=== PATIENT | male | born 1935 | race Caucasian/White ===

== ENCOUNTER → 2016-10-23 | Outpatient (CLI) | payer MEDICARE ==
[~2016-10-23] MED LIST: LIDOCAINE 2% PF Vial for OR 5 ML VIAL. ONE; PROPOFOL 20 ML IV ONE; fentaNYL PF VIAL 100 MCG/2 ML VIAL ONE
--- NOTE | 2016-10-23 15:28 | PCVCIMAG ---
APPROVED REPORT Study performed: 10/23/2016 13:43:45 EXAM: Comprehensive 2D, Doppler, and color-flow Echocardiogram Patient Location: Echo lab Status: routine Other Information Study Quality: Adequate Indications Hypotension Hypertension/HDD Hyperlipidemia. Pacermaker, afib, cad, stent 2D Dimensions IVSd: 7.04 (7-11mm)LVOT Diam: 18.51 (18-24mm) LVDd: 51.34 mm PWd: 7.84 (7-11mm)Ascending Ao: 28.86 (22-36mm) LVDs: 33.99 (25-40mm) Left Atrium: 46.52 (27-40mm) Aortic Root: 28.35 mm LV Single Plane 4CH: 49.80 % LV Single Plane 2CH: 41.70 %Villarreal's LVEF: 45.75 % Biplane EF: 46.9 % Volumes Left Atrial Volume (Systole) Single Plane 4CH: 43.94 mLSingle Plane 2CH: 41.90 mL LA ESV Index: 23.00 mL/m2 Aortic Valve AoV Peak Vicente.: 1.55 m/s AO Peak Gr.: 9.63 mmHgLVOT Max P.47 mmHg LVOT Max V: 1.37 m/s JUAN CARLOS Vmax: 2.37 cm2 Mitral Valve E/A Ratio: 1.0 MV E Max Vicente.: 1.12 m/s MV A Vicente.: 1.09 m/s Pulmonary Valve PV Peak Gr.: 3.93 mmHg Tricuspid Valve TR Peak Vicente.: 2.99 m/s TR Peak Gr.: 35.69 mmHg Left Ventricle The left ventricle is normal size. There is normal LV segmental wall motion. There is normal left ventricular wall thickness. Left ventricular systolic function is normal LVEF is 50-55%. The left ventricular diastolic function is normal. Right Ventricle The right ventricle is normal size. Pacermaker wire is noted. The right ventricular systolic function is normal. Atria The left atrium size is mildly enlarged The right atrium size is mildly enlarged. Pacemaker wire is noted. Aortic Valve The aortic valve is normal in structure. No aortic regurgitation is present. There is no aortic valvular stenosis. Mitral Valve Moderate mitral annular calcification Mild mitral valve regurgitation. No evidence of mitral valve stenosis. Tricuspid Valve The tricuspid valve is normal in structure. Moderate tricuspid regurgitation. Pulmonic Valve The pulmonary valve is normal in structure. There is no pulmonic valvular regurgitation. Great Vessels The aortic root is normal in size. IVC is normal in size and collapses with >50% inspiration Pericardium There is no pericardial effusion. <Conclusion> Left ventricular systolic function is normal There is normal LV segmental wall motion. LVEF 50-55%. Both atria are mildly enlarged. Pacemaker wire is noted. The aortic valve is normal in structure. No aortic regurgitation or stenosis Moderate mitral annular calcification. Mild mitral valve regurgitation. Pulmonary artery pressure of 43mmHg There is no pericardial effusion.
== END | disposition home or self-care (01) ==
LOC: PCVCIMAG 13:00
PROVIDERS: ATTEND Internal Medicine
DX: I08.1 Rheumatic disorders of both mitral and tricuspid valves (principal); I25.119 Atherosclerotic heart disease of native coronary artery with unspecified angina pectoris; I10 Essential (primary) hypertension; E78.5 Hyperlipidemia, unspecified; I48.0 Paroxysmal atrial fibrillation; I63.429 Cerebral infarction due to embolism of unspecified anterior cerebral artery; E78.00 Pure hypercholesterolemia, unspecified; I62.00 Nontraumatic subdural hemorrhage, unspecified; I77.89 Other specified disorders of arteries and arterioles; K74.60 Unspecified cirrhosis of liver; Z95.0 Presence of cardiac pacemaker; Z95.5 Presence of coronary angioplasty implant and graft; Z86.73 Personal history of transient ischemic attack (TIA), and cerebral infarction without residual deficits; Z79.82 Long term (current) use of aspirin; Z87.891 Personal history of nicotine dependence; Z79.899 Other long term (current) drug therapy
CPT/HCPCS: 80061; 93005; 93306; G0463; J2001; J2704; J3010

== ENCOUNTER → 2017-01-07 | Outpatient (CLI) | payer MEDICARE ==
--- NOTE | 2017-01-07 09:01 | PCVCIMAG ---
EXAM: MESENTERIC ARTERIAL DUPLEX AND AORTOILIAC DUPLEX INDICATION: Mesenteric Atherosclerosis. FINDINGS: CELIAC AXIS: Mild velocity elevation the celiac axis consistent with less than 50% stenosis. No high-grade stenosis is seen. SUPERIOR MESENTERIC ARTERY: Mild velocity elevation the proximal superior mesenteric artery consistent with less than 50% stenosis. No high-grade stenosis is seen. INFERIOR MESENTERIC ARTERY: Mild velocity elevation the proximal inferior mesenteric artery consistent with less than 50% stenosis. No high-grade stenosis is seen. Mesenteric veins are patent where seen. AORTA: Suprarenal aorta measures maximum diameter of 2.7 cm. There is not a fusiform infrarenal aortic aneurysm. The infrarenal aorta measures maximum diameter of 2.3 cm. No aortic stenosis. RIGHT COMMON ILIAC ARTERY: Maximum diameter is 1.1 cm. No significant stenosis. RIGHT EXTERNAL ILIAC ARTERY: No significant stenosis. LEFT COMMON ILIAC ARTERY: Maximum diameter is 1.1 cm. No significant stenosis. LEFT EXTERNAL ILIAC ARTERY: No significant stenosis. IMPRESSION: No flow limiting mesenteric arterial stenosis. Mild less than 50% stenoses seen in the celiac axis, superior mesenteric artery, and inferior mesenteric artery. No abdominal aortic aneurysm. No aortoiliac stenosis seen. LOC:[id number]
== END | disposition home or self-care (01) ==
LOC: PCVCIMAG 07:55
PROVIDERS: ATTEND Nuclear Medicine Nuclear Cardiology
DX: K55.1 Chronic vascular disorders of intestine (principal); E78.00 Pure hypercholesterolemia, unspecified; I77.4 Celiac artery compression syndrome
CPT/HCPCS: 93975; 93978

== ENCOUNTER → 2017-07-15 | Outpatient (CLI) | payer MEDICARE | END | disposition home or self-care (01) | LOC: PCVCCLINIC 15:00 | DX: I10 Essential (primary) hypertension (principal); E78.5 Hyperlipidemia, unspecified; R94.31 Abnormal electrocardiogram [ECG] [EKG]; Z87.891 Personal history of nicotine dependence; Z79.899 Other long term (current) drug therapy; Z79.82 Long term (current) use of aspirin | CPT/HCPCS: 80061; 93005; 93280; G0463 ==